=== PATIENT | male | born 1990 | race Caucasian/White ===

== ENCOUNTER 2018-11-10 13:32 | Emergency (ER) | payer MEDICAID ==
[~2018-11-10] VITALS: Ht 172.7 cm; Wt 83.9 kg
[2018-11-10 13:43] VITALS: Ht 172.7 cm; Wt 83.9 kg
[2018-11-10 15:39] VITALS: BP 130/70
== END 2018-11-10 15:39 | disposition home or self-care (01) ==
LOC: ED 13:32
DX: S93.491A Sprain of other ligament of right ankle, initial encounter (principal); W11.XXXA Fall on and from ladder, initial encounter; Y93.89 Activity, other specified; Y92.89 Other specified places as the place of occurrence of the external cause; Y99.8 Other external cause status
CPT/HCPCS: Q0092